=== PATIENT | female | born 1965 | race Caucasian/White ===

== ENCOUNTER 2016-05-19 11:19 | Emergency (ER) | payer OTHER | END 2016-05-19 11:50 | disposition home or self-care (01) | LOC: ER 11:19 → EDBD 11:19 → ER 11:50 | DX: L25.5 Unspecified contact dermatitis due to plants, except food (principal); Z79.899 Other long term (current) drug therapy; F17.210 Nicotine dependence, cigarettes, uncomplicated | CPT/HCPCS: 96372; 99282-25; J2930 ==